=== PATIENT | male | born 1985 | race Caucasian/White ===

== ENCOUNTER 2017-11-24 12:40 | Inpatient (IN) | payer MEDICAID, OTHER ==
[~2017-11-24] VITALS: Ht 162.6 cm; Wt 103.2 kg
[2017-11-24] MEDS ORDERED: ONDANSETRON ODT 8 MG PO ONE (13:00)
[2017-11-24] MEDS ORDERED: HYDROcodone/APAP 5/325 TABLET PO ONE (13:00)
[2017-11-24] MEDS ORDERED: HYDROcodone/APAP 5/325 TABLET ONE (13:10)
[2017-11-24] MEDS ORDERED: ONDANSETRON ODT 4 MG ONE ×2 (13:11→13:24)
[2017-11-24 13:25] LABS: MEAN CORPUSCULAR HEMOGLOBIN 27.7 pg (27.5-34.5); MEAN CORPUSCULAR HGB CONC 33.9 g/dL (33.2-36.2); MEAN CORPUSCULAR VOLUME 81.5 fL (81-97); MEAN PLATELET VOLUME 10.1 fL (7.4-10.4); PLATELET COUNT 328 x10^3/uL (130-400); RED BLOOD COUNT 5.75 x10^6/uL (4.38-5.82); RED CELL DISTRIBUTION WIDTH 13.1 % (9.4-14.8)
[2017-11-24] MEDS ORDERED: SODIUM CHLORIDE FLUSH 10ML SYR IVF ONE (13:30)
[2017-11-24 13:32] LABS: ANION GAP 13 mmol/L (5-15); CALCIUM 8.6 mg/dL (8.5-10.1); CHLORIDE 102 mmol/L (98-107); CREATININE 3.27 mg/dL (0.7-1.3)
[2017-11-24 13:54] LABS: BASOPHILS # (AUTO) 0.02 x10^3/uL (0-0.1); BASOPHILS % (AUTO) 0 % (0-1); EOSINOPHILS # (AUTO) 0.06 x10^3/uL (0-0.4); EOSINOPHILS % (AUTO) 0 % (1-7); LYMPHOCYTES # (AUTO) 1.58 x10^3/uL (1-3.4); LYMPHOCYTES % (AUTO) 8 % (22-44); MD SCAN; MONOCYTES # (AUTO) 1.21 x10^3/uL (0.2-0.8); MONOCYTES % (AUTO) 6 % (2-9); NEUTROPHILS % (AUTO) 86 % (42-75)
[2017-11-24] MEDS ORDERED: SODIUM CHLORIDE 0.9% 1,000ML IVBOLUS ONE ×2 (14:00→15:00)
[2017-11-24] MEDS ORDERED: CLINDAMYCIN PMX 900MG/50ML 50 ML IV ONE (14:30)
[2017-11-24] MEDS ORDERED: ENOXAPARIN 40 MG/0.4 ML ONE (14:43)
[2017-11-24] MEDS ORDERED: DEXAMETHASONE 4 MG TABLET ONE (14:45)
[2017-11-24] MEDS ORDERED: DEXAMETHASONE 4 MG/ML, 1ML ONE (14:54)
[2017-11-24] MEDS ORDERED: AMPICILLIN/SULBACTAM 1,500 MG in SODIUM CHLORIDE 0.9% 50 ML IV ONE (15:00)
[2017-11-24] MEDS ORDERED: DEXAMETHASONE 4 MG/ML, 1ML IVPush ONE (15:00)
[2017-11-24] MEDS ORDERED: VANCOMYCIN PER PHARMACY MC ONE (15:00)
[2017-11-24] MEDS ORDERED: VANCOMYCIN 1,500 MG in SODIUM CHLORIDE 0.9% 250 ML IV ONE (15:00)
[2017-11-24] MEDS: LINEZOLID PMX 600MG/300ML 300 ML IV SCH (15:30)
[2017-11-24] MEDS: SODIUM CHLORIDE 0.9% 1,000 ML IV SCH ×2 (15:36→22:16)
[2017-11-24] MEDS ORDERED: SODIUM CHLORIDE 0.9% 1,000 ML IV ONE (15:48)
[2017-11-24] MEDS ORDERED: SODIUM CHLORIDE FLUSH 10ML SYR IVF PRN (16:00)
[2017-11-24] MEDS ORDERED: MORPHINE SULFATE 4 MG/ML, 1ML IVPush PRN ×2 (16:00)
[2017-11-24] MEDS ORDERED: ONDANSETRON 2MG/ML, 2ML IVPush PRN ×2 (16:00)
[2017-11-24 16:32] LABS: HCT (SEDRATE) 46.8 % (39.2-51.8)
[2017-11-24] MEDS ORDERED: PROPOFOL 10 MG/ML, 20ML ONE (17:30)
[2017-11-24] MEDS ORDERED: SUCCINYLCHOLINE 20 MG/ML, 10ML ONE (17:30)
[2017-11-24] MEDS ORDERED: FENTANYL PF 250 MCG/5ML ONE (17:30)
[2017-11-24] MEDS ORDERED: ROCURONIUM 10MG/ML,5ML ONE (17:30)
[2017-11-24] MEDS ORDERED: NEO/BACI/POLY/HC OINT 15GM ONE (17:32)
[2017-11-24] MEDS ORDERED: EPINEPHRINE 1 MG/ML, 1ML ONE (17:32)
[2017-11-24] MEDS ORDERED: LIDOCAINE/PF 1%, 30ML ONE (17:32)
[2017-11-24] MEDS ORDERED: ONDANSETRON ODT 8 MG PO PRN (18:00)
[2017-11-24] MEDS ORDERED: hydrALAzine 20 MG/ML, 1ML IV PRN (18:00)
[2017-11-24] MEDS ORDERED: FENTANYL PF 100 MCG/2ML IV PRN (18:00)
[2017-11-24] MEDS ORDERED: PROMETHAZINE 12.5 MG SUPP PR PRN (18:00)
[2017-11-24] MEDS ORDERED: LABETALOL 5MG/ML, 20ML IV PRN (18:00)
[2017-11-24] MEDS ORDERED: METOCLOPRAMIDE 5 MG/ML, 2ML ONE (18:18)
[2017-11-24] MEDS ORDERED: ONDANSETRON 2MG/ML, 2ML ONE (18:18)
[2017-11-24] MEDS ORDERED: PROMETHAZINE 25 MG/ML, 1ML ONE (19:12)
[2017-11-24] MEDS ORDERED: MORPHINE SULFATE 4 MG/ML, 1ML ONE (19:13)
[2017-11-24] MEDS: MORPHINE SULFATE 4 MG/ML, 1ML IVPush PRN ×2 (19:16→19:27)
[2017-11-24] MEDS ORDERED: HYDROmorphone 2 MG/ML, 1ML ONE (19:28)
[2017-11-24] MEDS ORDERED: PROMETHAZINE 25 MG/ML, 1ML IV PRN (19:30)
[2017-11-24] MEDS: HYDROmorphone 1 MG/ML, 1ML IV PRN ×2 (19:31→19:41)
[2017-11-24 21:06] VITALS: BP 126/85
[2017-11-24] MEDS: CLINDAMYCIN 300 MG CAPSULE PO SCH (22:12)
[2017-11-24 22:34] LABS: CREATININE,URINE RANDOM 84.4 mg/dL
[2017-11-24 22:43] LABS: MICROSCOPIC INDICATED
[2017-11-24 22:46] LABS: CULTURE INDICATED? YES
[2017-11-25 00:56] VITALS: BP 105/69
[2017-11-25] MEDS: HYDROcodone/APAP 7.5-325MG/15ML UDC PO PRN ×5 (01:21→20:44)
[2017-11-25 03:47] VITALS: BP 105/57
[2017-11-25] MEDS: LINEZOLID PMX 600MG/300ML 300 ML IV SCH (04:21)
[2017-11-25 06:04] LABS: MEAN CORPUSCULAR HEMOGLOBIN 28.1 pg (27.5-34.5); MEAN CORPUSCULAR HGB CONC 33.9 g/dL (33.2-36.2); MEAN CORPUSCULAR VOLUME 82.7 fL (81-97); MEAN PLATELET VOLUME 10.2 fL (7.4-10.4); PLATELET COUNT 353 x10^3/uL (130-400); RED BLOOD COUNT 4.84 x10^6/uL (4.38-5.82); RED CELL DISTRIBUTION WIDTH 13.5 % (9.4-14.8)
[2017-11-25 06:12] LABS: ALBUMIN 2.8 g/dL (3.4-5.0); ANION GAP 9 mmol/L (5-15); CALCIUM 8.2 mg/dL (8.5-10.1); CHLORIDE 107 mmol/L (98-107)
[2017-11-25 06:17] LABS: ALANINE AMINOTRANSFERASE 19 U/L (12-78); ALKALINE PHOSPHATASE 69 U/L (45-117); BILIRUBIN,TOTAL 0.8 mg/dL (0.2-1.0); CREATININE 1.72 mg/dL (0.7-1.3); TOTAL PROTEIN 6.9 g/dL (6.4-8.2)
[2017-11-25 06:22] LABS: BASOPHILS % (AUTO) 0 % (0-1); EOSINOPHILS % (AUTO) 0 % (1-7); LYMPHOCYTES # (AUTO) 0.81 x10^3/uL (1-3.4); LYMPHOCYTES % (AUTO) 4 % (22-44); MD SCAN; MONOCYTES # (AUTO) 0.75 x10^3/uL (0.2-0.8); MONOCYTES % (AUTO) 4 % (2-9); NEUTROPHILS # (AUTO) 18.54 x10^3/uL (1.8-6.8); NEUTROPHILS % (AUTO) 92 % (42-75)
[2017-11-25] MEDS: CLINDAMYCIN 300 MG CAPSULE PO SCH ×2 (07:20→10:59)
[2017-11-25] MEDS: SODIUM CHLORIDE 0.9% 1,000 ML IV SCH ×3 (07:21→20:10)
[2017-11-25 08:06] VITALS: BP 123/74
[2017-11-25] MEDS: AMPICILLIN/SULBACTAM 3 GM in SODIUM CHLORIDE 0.9% 100 ML IV SCH ×2 (11:36→17:53)
[2017-11-25 13:10] VITALS: BP 117/66
[2017-11-25] MEDS ORDERED: HYDROcodone/APAP 7.5-325MG/15ML UDC ONE (16:11)
[2017-11-25 20:00] VITALS: BP 116/73
[2017-11-26] MEDS: AMPICILLIN/SULBACTAM 3 GM in SODIUM CHLORIDE 0.9% 100 ML IV SCH ×4 (00:17→17:31)
[2017-11-26] MEDS: HYDROcodone/APAP 7.5-325MG/15ML UDC PO PRN ×6 (00:39→21:34)
[2017-11-26 02:00] VITALS: BP 111/70
[2017-11-26] MEDS: SODIUM CHLORIDE 0.9% 1,000 ML IV SCH ×3 (03:38→17:19)
[2017-11-26 06:00] LABS: MEAN CORPUSCULAR HEMOGLOBIN 27.5 pg (27.5-34.5); MEAN CORPUSCULAR HGB CONC 33.2 g/dL (33.2-36.2); MEAN PLATELET VOLUME 9.4 fL (7.4-10.4); PLATELET COUNT 333 x10^3/uL (130-400); RED CELL DISTRIBUTION WIDTH 13.7 % (9.4-14.8)
[2017-11-26 06:07] LABS: CHLORIDE 108 mmol/L (98-107)
[2017-11-26 06:47] LABS: BASOPHILS # (AUTO) 0.03 x10^3/uL (0-0.1); BASOPHILS % (AUTO) 0 % (0-1); EOSINOPHILS # (AUTO) 0.06 x10^3/uL (0-0.4); EOSINOPHILS % (AUTO) 1 % (1-7); LYMPHOCYTES # (AUTO) 2.03 x10^3/uL (1-3.4); LYMPHOCYTES % (AUTO) 18 % (22-44); MD NO; MONOCYTES # (AUTO) 0.81 x10^3/uL (0.2-0.8); MONOCYTES % (AUTO) 7 % (2-9); NEUTROPHILS # (AUTO) 8.42 x10^3/uL (1.8-6.8); NEUTROPHILS % (AUTO) 74 % (42-75)
[2017-11-26 07:11] LABS: ALBUMIN 2.7 g/dL (3.4-5.0); ANION GAP 8 mmol/L (5-15); CALCIUM 7.9 mg/dL (8.5-10.1)
[2017-11-26 07:16] LABS: ALANINE AMINOTRANSFERASE 17 U/L (12-78); ALKALINE PHOSPHATASE 53 U/L (45-117); BILIRUBIN,TOTAL 0.3 mg/dL (0.2-1.0); CREATININE 1.02 mg/dL (0.7-1.3); TOTAL PROTEIN 6.5 g/dL (6.4-8.2)
[2017-11-26 07:57] VITALS: BP 121/79
[2017-11-26 13:05] VITALS: BP 125/84
[2017-11-26 20:00] VITALS: BP 119/76
[2017-11-27] MEDS: AMPICILLIN/SULBACTAM 3 GM in SODIUM CHLORIDE 0.9% 100 ML IV SCH ×3 (00:16→13:18)
[2017-11-27] MEDS: SODIUM CHLORIDE 0.9% 1,000 ML IV SCH ×3 (00:17→13:15)
[2017-11-27 02:00] VITALS: BP 122/75
[2017-11-27] MEDS: HYDROcodone/APAP 7.5-325MG/15ML UDC PO PRN ×4 (02:01→14:16)
[2017-11-27 08:53] VITALS: BP 116/73
[2017-11-27] MEDS ORDERED: HYDR15SO3 PO (09:14)
[2017-11-27] MEDS ORDERED: AMOX1TAB64 PO (09:14)
[2017-11-27 14:17] VITALS: BP 129/84
== END 2017-11-27 14:53 | disposition home or self-care (01) | DRG 853 ==
LOC: ED 15:35 → EDIP 15:36 → ED 16:13 → 4NOR 20:15
PROVIDERS: ADMIT Hospitalist; ATTEND Hospitalist
PROC: 0W9300Z Drainage of Oral Cavity and Throat with Drainage Device, Open Approach (ICD-10-PCS; 2017-11-24)
PROC: 3E0T3BZ Introduction of Anesthetic Agent into Peripheral Nerves and Plexi, Percutaneous Approach (ICD-10-PCS; 2017-11-24)
PROC: 0CDXXZ0 Extraction of Lower Tooth, Single, External Approach (ICD-10-PCS; principal; 2017-11-24 19:00)
DX: A41.9 Sepsis, unspecified organism (principal); N17.0 Acute kidney failure with tubular necrosis; R65.21 Severe sepsis with septic shock; K12.2 Cellulitis and abscess of mouth; E87.1 Hypo-osmolality and hyponatremia; F64.9 Gender identity disorder, unspecified; K02.9 Dental caries, unspecified; K04.6 Periapical abscess with sinus; Y92.89 Other specified places as the place of occurrence of the external cause; K05.6 Periodontal disease, unspecified; K14.0 Glossitis; R13.10 Dysphagia, unspecified; T39.311A Poisoning by propionic acid derivatives, accidental (unintentional), initial encounter; Z82.49 Family history of ischemic heart disease and other diseases of the circulatory system; Z82.5 Family history of asthma and other chronic lower respiratory diseases; Z83.3 Family history of diabetes mellitus; R73.9 Hyperglycemia, unspecified
CPT/HCPCS: 36415; 70100; 70490; 76770; 80048; 80053; 81001; 82436; 82570; 83605; 84133; 84145; 84300; 85025; 85651; 86140; 87040; 87086; 93005; 96361; 96365; 96375; J0171; J0295; J1100; J1170; J2020; J2405; J2550; J2704; J3010; J3370; J3490; Q0162; J0330; J2765; J7030; J7050